=== PATIENT | female | born 1950 | race Caucasian/White ===

== ENCOUNTER 2020-02-07 16:36 | Emergency (ER) | payer MEDICARE, OTHER ==
--- NOTE | 2020-02-07 17:06 | PCM.SN.2 ---
- Free Text/Narrative Note: 12-Lead ECG Interpretation Acquired: 5:01 PM Rhythm: Sinus rhythm Rate: 89 bpm [place]: Normal Intervals: Normal Ectopy: None RV Strain: No obvious RV strain pattern. ST Segments/T-Waves: No notable changes Acute Ischemic Changes: None apparent Interpretation: No STEMI
[2020-02-07] MEDS ORDERED: Sodium Chloride 0.9% 2.5 ML Syringe FLUSH PRN (17:07)
[2020-02-07] MEDS ORDERED: Sodium Chloride 0.9% 10 ML Syringe FLUSH PRN (17:07)
[2020-02-07 17:37] LABS: BLOOD UREA NITROGEN,BUN 30 mg/dL (7.0-18.0); CARBON DIOXIDE,CO2 23.1 mmol/L (21.0-32.0); CHLORIDE,CL 94 mmol/L (98-107); GLUCOSE RANDOM 174 mg/dL (74-106); POTASSIUM,K 3.9 mmol/L (3.5-5.1); SODIUM,NA 132 mmol/L (136-145)
--- NOTE | 2020-02-07 17:52 | EDM.PDOC ---
<Giovanni Hernández - Last Filed: 02/07/20 19:46> ED HPI GENERAL MEDICAL PROBLEM - General Chief Complaint: Respiratory Problem Stated Complaint: SOB Time Seen by Provider: 02/07/20 16:42 Source of Information: Reports: Patient, Old Records History Limitations: Reports: No Limitations - History of Present Illness INITIAL COMMENTS - FREE TEXT/NARRATIVE: 69-year-old female with a past medical history of COPD and hypertension, diabetes mellitus, hypothyroidism, hyperlipidemia presenting with shortness of breath and infectious symptoms. She reports a 6-day history of a cough, fever at home, scant diarrhea, myalgias, and shortness of breath. The shortness of breath worsened today, which prompted her emergency department presentation. No known sick contacts. She was tested for COVID-19 2 days ago but has not had a result yet. Denies headache, neck pain, chest discomfort, hemoptysis, leg swelling, vomiting, hematemesis, bloody stools, dysuria, or hematuria. She does not use oxygen at home for her COPD. ROS: A 10-point review of systems was negative, except as noted in the HPI (or in the ROS section of this note). Past medical history: Reviewed, no additional pertinent history. Surgical history: Reviewed in system, no additional pertinent history. Social history: Reviewed in system, no additional pertinent history. Family history: Reviewed in system, no additional pertinent history. PHYSICAL EXAM Vital signs reviewed. Nursing notes reviewed. Constitutional: Awake, alert, non-distressed. Head: Normocephalic, atraumatic. Eyes: EOMI, conjunctiva normal, no discharge, no scleral icterus. Ears, Nose, Throat: External ears and nose normal, moist oral mucosa. Cardiovascular: 2+ radial pulse, capillary refill less than 2 seconds. No lower extremity edema. Pulmonary: Tachypneic, mildly increased work of breathing, no accessory muscle use. Abdomen/GI: Soft, nontender, nondistended, no guarding or rigidity, no masses. Musculoskeletal: No deformities. Integumentary: Appropriate color for ethnicity, warm, dry, no pallor or jaundice, no rash. Neurologic: Alert, answering questions appropriately, normal speech, no facial droop, moving all extremities well. Psychiatric: Appropriate mood and affect, normal thought process. This patient was seen and evaluated during the 2019 SARS-CoV-2 novel coronavirus pandemic period. Community viral transmission is ongoing at time of this encounter and the emergency department is operating under pandemic response procedures. Center back Pain Score (Numeric/FACES): 8 - Related Data Allergies Allergy/AdvReac Type Severity Reaction Status Date / Time nickel [Nickel] Allergy Rash Verified 02/07/20 16:50 catgut sutures Allergy Cannot Uncoded 02/07/20 16:50 Remember Home Meds: Home Meds Venlafaxine [Effexor] 150 mg PO DAILY 07/15/13 [History] atorvaSTATin Calcium [Atorvastatin Calcium] 10 mg PO DAILY 07/15/13 [History] metFORMIN HCl [Metformin HCl] 4,000 mg PO BID 07/15/13 [History] Budesonide/Formoterol [Symbicort 160-4.5 MCG] 1 puff INH BID 02/07/20 [History] Calcium Carbonate [Calcium] 600 mg PO DAILY 02/07/20 [History] Chlorthalidone 25 mg PO DAILY 02/07/20 [History] Diltiazem [Tiazac] 240 mg PO DAILY 02/07/20 [History] Levothyroxine 25 mcg PO DAILY 02/07/20 [History] Omeprazole 40 mg PO DAILY 02/07/20 [History] Past Medical History Cardiovascular History: Reports: High Cholesterol, Hypertension, ND, Stents Respiratory History: Reports: COPD Endocrine/Metabolic History: Reports: Diabetes, Type II - Infectious Disease History Infectious Disease History: Reports: Chicken Pox, Measles, Mumps - Past Surgical History Other Musculoskeletal Surgeries/Procedures:: R ankle, 7 R knee surgeries, 1 L knee surgery, Carpel tunnel repair bilat, spinal stenosis with repair Social & Family History - Family History Family Medical History: No Pertinent Family History - Tobacco Use Tobacco Use Status *Q: Never Tobacco User - Caffeine Use Caffeine Use: Reports: Coffee, Soda - Recreational Drug Use Recreational Drug Use: Yes Recreational Drug Type: Reports: Marijuana/Hashish Recreational Drug Use Frequency: Socially ED ROS GENERAL - Review of Systems Review Of Systems: See Below ED EXAM, GENERAL - Physical Exam Exam: See Below Course - Vital Signs Text/Narrative:: Differential diagnosis includes but is not limited to: COVID-19 pneumonia, bacterial pneumonia, sepsis, less likely acute coronary syndrome or congestive heart failure, less likely pulmonary embolism, COPD exacerbation, asthma exacerbation, and many others. 5:53 PM: Labs show normal cell lines. Mild hyponatremia 132. Creatinine mildly elevated at 1.2. Glucose 174 with normal carbon dioxide. AST mildly elevated at 59. Troponin negative. Waiting for BNP, COVID test, and chest x-ray. 6:26 PM: Chest x-ray is clear however the patient is persistently hypoxic. We are going to obtain a CT pulmonary angiogram to evaluate for pulmonary embolism or other occult pneumonia. Her COVID-19 test is positive. We are going to give p.o. dexamethasone. IV remdesivir not available as patient will need to be transferred to another hospital as we have no capacity here. The patient remained in the ED through the end of my shift. Refer to my colleague Dr. Claire's note for the disposition. Departure - Departure Disposition: DC/Tfer to Acute Hospital 02 Condition: Good Clinical Impression: Hypoxia, Acute respiratory failure due to COVID-19 - Discharge Information Referrals: Gee Skelton MD [Primary Care Provider] - Forms: ED Department Discharge Sepsis Event Note (ED) - Evaluation Sepsis Screening Result: No Definite Risk <Terry Claire - Last Filed: 02/07/20 19:55> Course - Vital Signs Last Recorded V/S: Last Vital Signs Temp 99.9 F 02/07/20 19:41 Pulse 84 02/07/20 19:41 Resp 20 02/07/20 19:41 BP 126/85 02/07/20 19:41 Pulse Ox 94 L 02/07/20 19:41 - Orders/Labs/Meds Orders: Active Orders 24 hr Category Date Time Status EKG Documentation Completion [RC] STAT Care 02/07/20 17:07 Active Pulse Oximetry [RC] ASDIRECTED Care 02/07/20 17:07 Active CORONAVIRUS COVID-19 PCR PHL Stat Lab 02/07/20 17:37 Received Sodium Chloride 0.9% [Saline Flush] Med 02/07/20 17:07 Active 10 ml FLUSH ASDIRECTED PRN Sodium Chloride 0.9% [Saline Flush] Med 02/07/20 17:07 Active 2.5 ml FLUSH ASDIRECTED PRN Saline Lock Insert [OM.PC] Stat Oth 02/07/20 17:07 Ordered Medication Orders Sodium Chloride (Saline Flush) 10 ml FLUSH ASDIRECTED PRN PRN Reason: Keep Vein Open Last Admin: 02/07/20 18:28 Dose: 10 ml Documented by: [id number] Sodium Chloride (Saline Flush) 2.5 ml FLUSH ASDIRECTED PRN PRN Reason: Keep Vein Open Last Admin: 02/07/20 18:28 Dose: 2.5 ml Documented by: [id number] Labs: Laboratory Tests 02/07/20 02/07/20 02/07/20 Range/Units 17:04 17:04 17:04 WBC 6.91 (4.0-11.0) K/uL RBC 5.01 (4.30-5.90) M/uL Hgb 15.0 (12.0-16.0) g/dL Hct 43.3 (36.0-46.0) % MCV 86.4 (80.0-98.0) fL MCH 29.9 (27.0-32.0) pg MCHC 34.6 (31.0-37.0) g/dL RDW Std Deviation 46.5 (28.0-62.0) fl RDW Coeff of Chicho 15 (11.0-15.0) % Plt Count 268 (150-400) K/uL MPV 10.40 (7.40-12.00) fL Neut % (Auto) 67.0 (48.0-80.0) % Lymph % (Auto) 19.8 (16.0-40.0) % [place] % (Auto) 13.0 (0.0-15.0) % Eos % (Auto) 0.1 (0.0-7.0) % Baso % (Auto) 0.1 (0.0-1.5) % Neut # (Auto) 4.6 (1.4-5.7) K/uL Lymph # (Auto) 1.4 (0.6-2.4) K/uL [place] # (Auto) 0.9 H (0.0-0.8) K/uL Eos # (Auto) 0.0 (0.0-0.7) K/uL Baso # (Auto) 0.0 (0.0-0.1) K/uL Nucleated RBC % 0.0 /100WBC Nucleated RBCs # 0 K/uL Sodium 132 L (136-145) mmol/L Potassium 3.9 (3.5-5.1) mmol/L Chloride 94 L (98-107) mmol/L Carbon Dioxide 23.1 (21.0-32.0) mmol/L BUN 30 H (7.0-18.0) mg/dL Creatinine 1.2 H (0.6-1.0) mg/dL Est Cr Clr Drug Dosing 32.68 mL/min Estimated GFR (MDRD) 44.8 ml/min Glucose 174 H (74-106) mg/dL Calcium 9.1 (8.5-10.1) mg/dL Total Bilirubin 0.5 (0.2-1.0) mg/dL AST 59 H (15-37) IU/L ALT 55 (14-63) IU/L Alkaline Phosphatase 91 (46-116) U/L Troponin I < 0.050 (0.000-0.056) ng/mL B-Natriuretic Peptide 9 (<100) PG/ML Total Protein 7.9 (6.4-8.2) g/dL Albumin 3.5 (3.4-5.0) g/dL Globulin 4.4 H (2.6-4.0) g/dL Albumin/Globulin Ratio 0.8 L (0.9-1.6) SARS CoV-2 RNA Rapid VIRAL (NEGATIVE) 02/07/20 Range/Units 17:37 WBC (4.0-11.0) K/uL RBC (4.30-5.90) M/uL Hgb (12.0-16.0) g/dL Hct (36.0-46.0) % MCV (80.0-98.0) fL MCH (27.0-32.0) pg MCHC (31.0-37.0) g/dL RDW Std Deviation (28.0-62.0) fl RDW Coeff of Chicho (11.0-15.0) % Plt Count (150-400) K/uL MPV (7.40-12.00) fL Neut % (Auto) (48.0-80.0) % Lymph % (Auto) (16.0-40.0) % [place] % (Auto) (0.0-15.0) % Eos % (Auto) (0.0-7.0) % Baso % (Auto) (0.0-1.5) % Neut # (Auto) (1.4-5.7) K/uL Lymph # (Auto) (0.6-2.4) K/uL [place] # (Auto) (0.0-0.8) K/uL Eos # (Auto) (0.0-0.7) K/uL Baso # (Auto) (0.0-0.1) K/uL Nucleated RBC % /100WBC Nucleated RBCs # K/uL Sodium (136-145) mmol/L Potassium (3.5-5.1) mmol/L Chloride (98-107) mmol/L Carbon Dioxide (21.0-32.0) mmol/L BUN (7.0-18.0) mg/dL Creatinine (0.6-1.0) mg/dL Est Cr Clr Drug Dosing mL/min Estimated GFR (MDRD) ml/min Glucose (74-106) mg/dL Calcium (8.5-10.1) mg/dL Total Bilirubin (0.2-1.0) mg/dL AST (15-37) IU/L ALT (14-63) IU/L Alkaline Phosphatase (46-116) U/L Troponin I (0.000-0.056) ng/mL B-Natriuretic Peptide (<100) PG/ML Total Protein (6.4-8.2) g/dL Albumin (3.4-5.0) g/dL Globulin (2.6-4.0) g/dL Albumin/Globulin Ratio (0.9-1.6) SARS CoV-2 RNA Rapid VIRAL POSITIVE H (NEGATIVE) Meds: Medications Generic Name Dose Route Start Last Admin Trade Name Freq PRN Reason Stop Dose Admin Sodium Chloride 10 ml 02/07/20 17:07 02/07/20 18:28 Saline Flush FLUSH 10 ml ASDIRECTED PRN Administration Keep Vein Open Sodium Chloride 2.5 ml 02/07/20 17:07 02/07/20 18:28 Saline Flush FLUSH 2.5 ml ASDIRECTED PRN Administration Keep Vein Open Discontinued Medications Generic Name Dose Route Start Last Admin Trade Name Freq PRN Reason Stop Dose Admin Acetaminophen 1,000 mg 02/07/20 18:18 02/07/20 18:28 Tylenol Extra Strength PO 02/07/20 18:19 1,000 mg ONETIME ONE Administration Dexamethasone 6 mg 02/07/20 18:25 02/07/20 19:34 Dexamethasone PO 02/07/20 18:26 6 mg ONETIME ONE Administration Remdesivir 200 mg/ Sodium 250 mls @ 250 mls/hr 02/07/20 18:26 02/07/20 18:56 Chloride IV 02/07/20 18:27 Not Given ONETIME ONE Ibuprofen 400 mg 02/07/20 18:18 02/07/20 18:28 Motrin PO 02/07/20 18:19 400 mg ONETIME ONE Administration Iopamidol 50 ml 02/07/20 19:01 02/07/20 19:02 Isovue Multipack-370 (76%) IVPUSH 02/07/20 19:02 50 ml ONETIME STA Administration Departure - Departure Time of Disposition: 19:54 Condition: Good Sepsis Event Note (ED) - Focused Exam Vital Signs: Vital Signs Temp Pulse Resp BP Pulse Ox 02/07/20 19:41 99.9 F 84 20 126/85 94 L 02/07/20 18:21 88 18 122/65 94 L 02/07/20 17:51 90 120/63 90 L 02/07/20 17:01 96.8 F L 92 16 145/68 H 93 L - Assessment/Plan Assessment:: Pt received in signout from Dr. Hernández at 1900. PT is a 69yoF with a h/o COPD presenting with acute hypoxic respiratory failure in the setting of COVID-19 infection. Pt's RA saturation was in the low 80s with unremarkable CXR. Given this CTPA is pending to assess for any PE. Labs are w/out evidence of right heart strain. Pt is now satting well on NC. Pt will need to be transferred as we do not have capacity for additional COVID19 admissions. 1930: CT pulmonary angiography demonstrates emphysematous changes and scattered groundglass opacities consistent with COVID-19. There is no PE. Patient relatively comfortable on 3 L nasal cannula at this time. She states that she takes Advair and frequent doses of prednisone for her COPD. She has a rescue inhaler but almost never needs it. She has been on prednisone more often recently in an attempt to control her chronic cough. She says that it worked for a few days and then stopped working again. Patient consents to transfer we will start the transfer process. On my assessment her WOB is good, she is breathing comfortably on 4 L NC with O2 sats 93-95. She is speaking in full complete sentences. 1934: [facility] at capacity. [facility] has only 3 COVID beds left and 5 COVID patients waiting in their ED so a bed is unlikely. Pt discussed with [facility]. The patient was accepted for transfer by Dr. Duenas. Patient has already been given decadron. Dr. Duenas and I agree that pt would be a candidate for Remdesivir. Unfortunately, because our local supply is so limited, hospital policy will not allow us to give Remdesivir to a patient that is being transferred. She will need to receive it at [facility]. Pt is felt stable for transfer at this time. We are awaiting bed assignment.
--- NOTE | 2020-02-07 18:05 | CR ---
Indication: Dyspnea Comparison: Two-view chest June 20, 2018 Technique: Single AP view chest Findings: There is hyperinflation and chronic interstitial change. There is no focal consolidation, effusion, or pneumothorax. The cardiomediastinal silhouette is within normal limits. The bony thorax is grossly intact. Impression: No acute cardiopulmonary abnormality. Dictated by Troy Richter MD @ Feb 07 2020 6:02PM Signed by Dr. Troy Richter @ Feb 07 2020 6:04PM
[2020-02-07] MEDS ORDERED: Acetaminophen 500 MG Tab PO ONE (18:18)
[2020-02-07] MEDS ORDERED: Ibuprofen 400 MG Tab PO ONE (18:18)
[2020-02-07] MEDS ORDERED: Dexamethasone 4 MG Tab PO ONE (18:25)
[2020-02-07] MEDS ORDERED: REMDESIVIR 200 MG in Sodium Chloride 0.9% 250 ML IV ONE (18:26)
[2020-02-07] MEDS ORDERED: Iopamidol 755 MG/ML 500 ML Multipack Bottle IVPUSH STA (19:01)
--- NOTE | 2020-02-07 19:22 | CT ---
Indication: Hypoxia Technique: Volumetric multidetector CT images of the chest were obtained after the administration of IV contrast. 50 cc Isovue 370 Comparison: Single view chest February 06, 2018 Findings: The thoracic inlet and thyroid gland are unremarkable. The thoracic aorta is nonaneurysmal. There is no central filling defect to suggest pulmonary embolism. There are reactive mediastinal and hilar lymph nodes. There is traction bronchiectasis and central bronchial thickening. There is moderate to severe emphysematous changes of the upper lobes predominantly with peripheral honeycombing likely representing a component of pulmonary fibrotic changes. There are likely superimposed ground-glass opacities which may represent developing multifocal infiltrate. There is no evidence of pulmonary mass or suspicious pulmonary nodule. The partially visualized upper abdominal viscera are within normal limits. The thoracic vertebral body heights are grossly maintained with minimal endplate Schmorl`s defects. There is no significant spondylolisthesis or displaced fracture. Impression: Extensive emphysematous changes and pulmonary fibrotic changes with likely minimal superimposed ground-glass opacity which may represent developing infiltrate. No evidence of pulmonary embolus. Please note that all CT scans at this facility use dose modulation, iterative reconstruction, and/or weight-based dosing when appropriate to reduce radiation dose to as low as reasonably achievable. Dictated by Troy Richter MD @ Feb 07 2020 7:03PM Signed by Dr. Troy Richter @ Feb 07 2020 7:21PM
[2020-02-07 20:24] VITALS: BP 102/53; PULSE 82
== END 2020-02-07 21:40 ==
LOC: MW.ED 16:36
DX: J96.01 Acute respiratory failure with hypoxia (principal); U07.1 COVID-19; J44.9 Chronic obstructive pulmonary disease, unspecified; I10 Essential (primary) hypertension; E11.9 Type 2 diabetes mellitus without complications; E03.9 Hypothyroidism, unspecified; E78.5 Hyperlipidemia, unspecified; E78.00 Pure hypercholesterolemia, unspecified; I25.2 Old myocardial infarction; Z88.8 Allergy status to other drugs, medicaments and biological substances; Z91.048 Other nonmedicinal substance allergy status; Z79.84 Long term (current) use of oral hypoglycemic drugs; Z79.899 Other long term (current) drug therapy
CPT/HCPCS: 36415; 71045; 71275; 80053; 83880; 84484; 85025; 93005; 99285; A9270; J8540; Q9967; U0002; 93010

== ENCOUNTER 2020-07-11 02:31 | Emergency (ER) | payer MEDICARE, OTHER ==
[2020-07-11] MEDS ORDERED: Diazepam 2 MG Tab PO ONE (03:31)
[2020-07-11] MEDS ORDERED: Ketorolac 30 MG/ML SDV IM ONE (03:31)
[2020-07-11] MEDS ORDERED: Ketorolac 30 MG/ML SDV ONE (03:32)
--- NOTE | 2020-07-11 03:40 | EDM.PDOC ---
ED HPI GENERAL MEDICAL PROBLEM - General Chief Complaint: Back Pain or Injury Stated Complaint: BACK SPASMS Time Seen by Provider: 07/11/20 03:09 - History of Present Illness INITIAL COMMENTS - FREE TEXT/NARRATIVE: ED HPI GENERAL MEDICAL PROBLEM - General Chief Complaint: Back Pain or Injury Stated Complaint: LEFT FOOT SHARP PAIN Time Seen by Provider: 07/11/20 03:10 - History of Present Illness INITIAL COMMENTS - FREE TEXT/NARRATIVE: History of present illness: [] Patient is 2 days of severe pain in left hip. It radiates down the left leg. It causes spasm. Changing the position over and over helps a little bit. The patient's had episodes in the past and they responded to anti-inflammatory medicine the muscle relaxers. The patient has no neurologic findings. She also says she has incontinence of urine but she has control of your sphincter to some degree but she just cannot make it to the bathroom in time and this is chronic and not new. The patient has no loss of control of her bowels. She has no sensory or motor loss below the waist. No dysuria or other urinary symptoms and no new urinary symptoms. There is been no history of injury and she has no history of malignancy. Review of systems: As per history of present illness and below otherwise all systems reviewed and negative. Past medical history: As per history of present illness and as reviewed below otherwise noncontributory. Surgical history: As per history of present illness and as reviewed below otherwise noncontributory. Social history: No reported history of drug or alcohol abuse. Family history: As per history of present illness and as reviewed below otherwise nonc ontributory. Physical exam: Constitutional - well developed, well-nourished and in no acute distress HEENT - normocephalic, no evidence of trauma - external nose and mouth normal - no mass in neck and no JVD - mucosae moist EYES - full EOM, PERRL, no icterus - no evidence of inflammation, injection, or drainage Respiratory - no respiratory distress, equal bilateral expansion, lungs clear to auscultation and no abnormal lung sounds Cardiovascular - Regular Rhythm with S1 and S2 appreciated and no murmur, gallop or rub. GI - abdomen soft without distension or organomegaly - normal bowel sounds - no guard or rebound Musculoskeletal straight leg raise on the right to 45 degrees causes a little bit of pain crossover to the left side of the hip. She is tender in the sciatic region and posterior thigh. Straight leg raise on the left is negative. No gross deformity of long bones or joints - no tenderness, swelling or edema Neurologic - Alert and oriented times four - CN II-XII grossly intact - motor sensory and coordination symmetrically normal Psychiatric - appropriate mood and affect with normal thought content Hematologic - No petechiae or purpura - mucosa appropriate color and sclera not pale - normal nail bed color and refill Integument - no rash or evidence of trauma - normal turgor Diagnostics: [] Therapeutics: [] Impression: [] Plan: [] Definitive disposition and diagnosis as appropriate pending reevaluation and review of above. Left Leg Pain Score (Numeric/FACES): 9 - Related Data Allergies Allergy/AdvReac Type Severity Reaction Status Date / Time No Known Allergies Allergy Verified 07/11/20 02:55 Home Meds: Home Meds diazePAM [Valium] 5 mg PO TID PRN #15 tab 07/11/20 [Rx] Past Medical History - Past Health History Medical/Surgical History: Denies Medical/Surgical History HEENT History: Reports: None Cardiovascular History: Reports: None Respiratory History: Reports: None Gastrointestinal History: Reports: None Genitourinary History: Reports: None PUBLIC SERVICE OFFICER History: Reports: None Musculoskeletal History: Reports: None Neurological History: Reports: None Psychiatric History: Reports: None Endocrine/Metabolic History: Reports: None Hematologic History: Reports: None Immunologic History: Reports: None Oncologic (Cancer) History: Reports: None Dermatologic History: Reports: None - Infectious Disease History Infectious Disease History: Reports: None - Past Surgical History Head Surgeries/Procedures: Reports: None HEENT Surgical History: Reports: Tonsillectomy GI Surgical History: Reports: None Social & Family History - Family History Family Medical History: No Pertinent Family History - Tobacco Use Tobacco Use Status *Q: Never Tobacco User - Caffeine Use Caffeine Use: Reports: None - Recreational Drug Use Recreational Drug Use: No ED ROS GENERAL - Review of Systems Review Of Systems: Comprehensive ROS is negative, except as noted in HPI. ED EXAM, GENERAL - Physical Exam Exam: See Below Free Text/Narrative:: My physical exam is in the HPI Course - Vital Signs Last Recorded V/S: Last Vital Signs Temp 36.1 C 07/11/20 02:55 Pulse 95 07/11/20 02:55 Resp 18 07/11/20 02:55 BP 128/49 L 07/11/20 02:55 Pulse Ox 97 07/11/20 02:55 - Orders/Labs/Meds Orders: Active Orders 24 hr Category Date Time Status Ketorolac [Toradol] Med 07/11/20 03:19 Once 30 mg IM ONETIME ONE diazePAM [Valium] Med 07/11/20 03:20 Once 5 mg PO ONETIME ONE Medication Orders Diazepam (Diazepam 2 Mg Tab) 5 mg PO ONETIME ONE Stop: 07/11/20 03:21 Ketorolac Tromethamine (Ketorolac 30 Mg/Ml Sdv) 30 mg IM ONETIME ONE Stop: 07/11/20 03:20 Meds: Medications Generic Name Dose Route Start Last Admin Trade Name Sarita PRN Reason Stop Dose Admin Diazepam 5 mg 07/11/20 03:20 Diazepam 2 Mg Tab PO 07/11/20 03:21 ONETIME ONE Ketorolac Tromethamine 30 mg 07/11/20 03:19 Ketorolac 30 Mg/Ml Sdv IM 07/11/20 03:20 ONETIME ONE Departure - Departure Time of Disposition: 03:45 Disposition: Home, Self-Care 01 Condition: Good Clinical Impression: Sciatica - Discharge Information Instructions: Sciatica, [id number] Referrals: Sylvia García NP [Primary Care Provider] - Additional Instructions: Take 500 mg naproxen or 600 mg ibuprofen as directed in the over the counter forearm along with a muscle relaxer. Be careful a muscle relaxer will also make you relaxed and may make you tired. [facility] [address] [place] [id number] [address] [id number] The following information is given to patients seen in the emergency department who are being discharged to home. This information is to outline your options for follow-up care. We provide all patients seen in our emergency department with a follow-up referral. The need for follow-up, as well as the timing and circumstances, are variable depending upon the specifics of your emergency department visit. If you don't have a primary care physician on staff, we will provide you with a referral. We always advise you to contact your personal physician following an emergency department visit to inform them of the circumstance of the visit and for follow-up with them and/or the need for any referrals to a consulting specialist. The emergency department will also refer you to a specialist when appropriate. This referral assures that you have the opportunity for follow-up care with a specialist. All of these measure are taken in an effort to provide you with optimal care, which includes your follow-up. Under all circumstances we always encourage you to contact your private physician who remains a resource for coordinating your care. When calling for follow-up care, please make the office aware that this follow-up is from your recent emergency room visit. If for any reason you are refused follow-up, please contact the [facility] Emergency Department at and asked to speak to the emergency department charge nurse. Sepsis Event Note (ED) - Evaluation Sepsis Screening Result: No Definite Risk - Focused Exam Vital Signs: Vital Signs Temp Pulse Resp BP Pulse Ox 07/11/20 02:55 36.1 C 95 18 128/49 L 97 - My Orders Last 24 Hours: My Active Orders 07/11/20 03:19 Ketorolac [Toradol] 30 mg IM ONETIME ONE 07/11/20 03:20 diazePAM [Valium] 5 mg PO ONETIME ONE - Assessment/Plan Last 24 Hours: My Active Orders 07/11/20 03:19 Ketorolac [Toradol] 30 mg IM ONETIME ONE 07/11/20 03:20 diazePAM [Valium] 5 mg PO ONETIME ONE lower back Pain Score (Numeric/FACES): 10 - Related Data Allergies Allergy/AdvReac Type Severity Reaction Status Date / Time nickel [Nickel] Allergy Rash Verified 07/11/20 02:55 catgut sutures Allergy Cannot Uncoded 07/11/20 02:55 Remember Home Meds: Home Meds Venlafaxine [Effexor] 150 mg PO DAILY 07/15/13 [History] atorvaSTATin Calcium [Atorvastatin Calcium] 10 mg PO DAILY 07/15/13 [History] metFORMIN HCl [Metformin HCl] 4,000 mg PO BID 07/15/13 [History] Budesonide/Formoterol [Symbicort 160-4.5 MCG] 1 puff INH BID 02/07/20 [History] Calcium Carbonate [Calcium] 600 mg PO DAILY 02/07/20 [History] Chlorthalidone 25 mg PO DAILY 02/07/20 [History] Diltiazem [Tiazac] 240 mg PO DAILY 02/07/20 [History] Levothyroxine 25 mcg PO DAILY 02/07/20 [History] Omeprazole 40 mg PO DAILY 02/07/20 [History] diazePAM [Valium] 5 mg PO TID PRN #15 tab 07/11/20 [Rx] Past Medical History HEENT History: Reports: None Cardiovascular History: Reports: High Cholesterol, Hypertension, [place], Stents Respiratory History: Reports: COPD Gastrointestinal History: Reports: None Genitourinary History: Reports: None PUBLIC SERVICE OFFICER History: Reports: None Musculoskeletal History: Reports: None Neurological History: Reports: None Psychiatric History: Reports: None Endocrine/Metabolic History: Reports: Diabetes, Type II 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 Consultant: None Hematologic History: Reports: None Immunologic History: Reports: None Oncologic (Cancer) History: Reports: None Dermatologic History: Reports: None - Infectious Disease History Infectious Disease History: Reports: Chicken Pox, Measles, Mumps - Past Surgical History Other Musculoskeletal Surgeries/Procedures:: R ankle, 7 R knee surgeries, 1 L knee surgery, Carpel tunnel repair bilat, spinal stenosis with repair Social & Family History - Family History Family Medical History: No Pertinent Family History - Caffeine Use Caffeine Use: Reports: Coffee, Soda - Recreational Drug Use Recreational Drug Use: No ED ROS GENERAL - Review of Systems Review Of Systems: Comprehensive ROS is negative, except as noted in HPI. ED EXAM, GENERAL - Physical Exam Exam: See Below Free Text/Narrative:: My physical exam is in the HPI Course - Vital Signs Text/Narrative:: ED HPI GENERAL MEDICAL PROBLEM - General Chief Complaint: Back Pain or Injury Stated Complaint: LEFT FOOT SHARP PAIN Time Seen by Provider: 07/11/20 03:10 - History of Present Illness INITIAL COMMENTS - FREE TEXT/NARRATIVE: History of present illness: [] Patient is 2 days of severe pain in left hip. It radiates down the left leg. It causes spasm. Changing the position over and over helps a little bit. The patient's had episodes in the past and they responded to anti-inflammatory medicine the muscle relaxers. The patient has no neurologic findings. She also says she has incontinence of urine but she has control of your sphincter to some degree but she just cannot make it to the bathroom in time and this is chronic and not new. The patient has no loss of control of her bowels. She has no sensory or motor loss below the waist. No dysuria or other urinary symptoms and no new urinary symptoms. There is been no history of injury and she has no history of malignancy. Review of systems: As per history of present illness and below otherwise all systems reviewed and negative. Past medical history: As per history of present illness and as reviewed below otherwise noncontributory. Surgical history: As per history of present illness and as reviewed below otherwise noncont ributory. Social history: No reported history of drug or alcohol abuse. Family history: As per history of present illness and as reviewed below otherwise noncontributory. Physical exam: Constitutional - well developed, well-nourished and in no acute distress HEENT - normocephalic, no evidence of trauma - external nose and mouth normal - no mass in neck and no JVD - mucosae moist EYES - full EOM, PERRL, no icterus - no evidence of inflammation, injection, or drainage Respiratory - no respiratory distress, equal bilateral expansion, lungs clear to auscultation and no abnormal lung sounds Cardiovascular - Regular Rhythm with S1 and S2 appreciated and no murmur, gallop or rub. GI - abdomen soft without distension or organomegaly - normal bowel sounds - no guard or rebound Musculoskeletal straight leg raise on the right to 45 degrees causes a little bit of pain crossover to the left side of the hip. She is tender in the sciatic region and posterior thigh. Straight leg raise on the left is negative. No gross deformity of long bones or joints - no tenderness, swelling or edema Neurologic - Alert and oriented times four - CN II-XII grossly intact - motor sensory and coordination symmetrically normal Psychiatric - appropriate mood and affect with normal thought content Hematologic - No petechiae or purpura - mucosa appropriate color and sclera not pale - normal nail bed color and refill Integument - no rash or evidence of trauma - normal turgor Diagnostics: [] Therapeutics: [] Impression: [] Plan: [] Definitive disposition and diagnosis as appropriate pending reevaluation and review of above. Left Leg Pain Score (Numeric/FACES): 9 - Related Data Allergies Allergy/AdvReac Type Severity Reaction Status Date / Time No Known Allergies Allergy Verified 07/11/20 02:55 Home Meds: Home Meds diazePAM [Valium] 5 mg PO TID PRN #15 tab 07/11/20 [Rx] Past Medical History - Past Health History Medical/Surgical History: Denies Medical/Surgical History HEENT History: Reports: None Cardiovascular History: Reports: None Respiratory History: Reports: None Gastrointestinal History: Reports: None Genitourinary History: Reports: None PUBLIC SERVICE OFFICER History: Reports: None Musculoskeletal History: Reports: None Neurological History: Reports: None Psychiatric History: Reports: None Endocrine/Metabolic History: Reports: None Hematologic History: Reports: None Immunologic History: Reports: None Oncologic (Cancer) History: Reports: None Dermatologic History: Reports: None - Infectious Disease History Infectious Disease History: Reports: None - Past Surgical History Head Surgeries/Procedures: Reports: None HEENT Surgical History: Reports: Tonsillectomy GI Surgical History: Reports: None Social & Family History - Family History Family Medical History: No Pertinent Family History - Tobacco Use Tobacco Use Status *Q: Never Tobacco User - Caffeine Use Caffeine Use: Reports: None - Recreational Drug Use Recreational Drug Use: No ED ROS GENERAL - Review of Systems Review Of Systems: Comprehensive ROS is negative, except as noted in HPI. ED EXAM, GENERAL - Physical Exam Exam: See Below Free Text/Narrative:: My physical exam is in the HPI Course - Vital Signs Last Recorded V/S: Last Vital Signs Temp 36.1 C 07/11/20 02:55 Pulse 95 07/11/20 02:55 Resp 18 07/11/20 02:55 BP 128/49 L 07/11/20 02:55 Pulse Ox 97 07/11/20 02:55 - Orders/Labs/Meds Orders: Active Orders 24 hr Category Date Time Status Ketorolac [Toradol] Med 07/11/20 03:19 Once 30 mg IM ONETIME ONE diazePAM [Valium] Med 07/11/20 03:20 Once 5 mg PO ONETIME ONE Medication Orders Diazepam (Diazepam 2 Mg Tab) 5 mg PO ONETIME ONE Stop: 07/11/20 03:21 Ketorolac Tromethamine (Ketorolac 30 Mg/Ml Sdv) 30 mg IM ONETIME ONE Stop: 07/11/20 03:20 Meds: Medications Generic Name Dose Route Start Last Admin Trade Name Sarita PRN Reason Stop Dose Admin Diazepam 5 mg 07/11/20 03:20 Diazepam 2 Mg Tab PO 07/11/20 03:21 ONETIME ONE Ketorolac Tromethamine 30 mg 07/11/20 03:19 Ketorolac 30 Mg/Ml Sdv IM 07/11/20 03:20 ONETIME ONE Departure - Departure Time of Disposition: 03:45 Disposition: Home, Self-Care 01 Condition: Good Clinical Impression: Sciatica - Discharge Information Instructions: Sciatica, [id number] Referrals: Sylvia García NP [Primary Care Provider] - Additional Instructions: Take 500 mg naproxen or 600 mg ibuprofen as directed in the over the counter forearm along with a muscle relaxer. Be careful a muscle relaxer will also make you relaxed and may make you tired. [facility] [address] [place] [address] [place] [address] The following information is given to patients seen in the emergency department who are being discharged to home. This information is to outline your options for follow-up care. We provide all patients seen in our emergency department with a follow-up referral. The need for follow-up, as well as the timing and circumstances, are variable depending upon the specifics of your emergency department visit. If you don't have a primary care physician on staff, we will provide you with a referral. We always advise you to contact your personal physician following an emergency department visit to inform them of the circumstance of the visit and for follow-up with them and/or the need for any referrals to a consulting ecialist. The emergency department will also refer you to a specialist when appropriate. This referral assures that you have the opportunity for follow-up care with a specialist. All of these measure are taken in an effort to provide you with optimal care, which includes your follow-up. Under all circumstances we always encourage you to contact your private physician who remains a resource for coordinating your care. When calling for follow-up care, please make the office aware that this follow-up is from your recent emergency room visit. If for any reason you are refused follow-up, please contact the [facility] Emergency Department at and asked to speak to the emergency department charge nurse. Sepsis Event Note (ED) - Evaluation Sepsis Screening Result: No Definite Risk - Focused Exam Vital Signs: Vital Signs Temp Pulse Resp BP Pulse Ox 07/11/20 02:55 36.1 C 95 18 128/49 L 97 - My Orders Last 24 Hours: My Active Orders 07/11/20 03:19 Ketorolac [Toradol] 30 mg IM ONETIME ONE 07/11/20 03:20 diazePAM [Valium] 5 mg PO ONETIME ONE - Assessment/Plan Last 24 Hours: My Active Orders 07/11/20 03:19 Ketorolac [Toradol] 30 mg IM ONETIME ONE 07/11/20 03:20 diazePAM [Valium] 5 mg PO ONETIME ONE Last Recorded V/S: Last Vital Signs Temp 36.6 C 07/11/20 02:55 Pulse 100 07/11/20 02:55 Resp 18 07/11/20 02:55 BP 125/98 H 07/11/20 02:55 Pulse Ox 97 07/11/20 02:55 - Orders/Labs/Meds Meds: Medications Discontinued Medications Generic Name Dose Route Start Last Admin Trade Name Sarita PRN Reason Stop Dose Admin Diazepam 5 mg 07/11/20 03:31 Diazepam 2 Mg Tab PO 07/11/20 03:32 ONETIME ONE Ketorolac Tromethamine 30 mg 07/11/20 03:31 Ketorolac 30 Mg/Ml Sdv IM 07/11/20 03:32 ONETIME ONE Ketorolac Tromethamine Confirm 07/11/20 03:32 Ketorolac 30 Mg/Ml Sdv Administered 07/11/20 03:33 Dose 30 mg .ROUTE .STK-MED ONE Departure - Departure Time of Disposition: 03:36 Disposition: Home, Self-Care 01 Condition: Good Clinical Impression: Sciatica - Discharge Information Instructions: Sciatica Referrals: Gee Skelton MD [Primary Care Provider] - Additional Instructions: Use [id number] anti-inflammatory medicines and the muscle relaxers. Be careful the Valium may cause sedation. [facility] - Primary [facility] [address] [place] [address] [facility] [address] [place] [id number] The following information is given to patients seen in the emergency department who are being discharged to home. This information is to outline your options for follow-up care. We provide all patients seen in our emergency department with a follow-up referral. The need for follow-up, as well as the timing and circumstances, are variable depending upon the specifics of your emergency department visit. If you don't have a primary care physician on staff, we will provide you with a referral. We always advise you to contact your personal physician following an emergency department visit to inform them of the circumstance of the visit and for follow-up with them and/or the need for any referrals to a consulting specialist. The emergency department will also refer you to a specialist when appropriate. This referral assures that you have the opportunity for follow-up care with a specialist. All of these measure are taken in an effort to provide you with optimal care, which includes your follow-up. Under all circumstances we always encourage you to contact your private physician who remains a resource for coordinating your care. When calling for follow-up care, please make the office aware that this follow-up is from your recent emergency room visit. If for any reason you are refused follow-up, please contact the [facility] Emergency Department at and asked to speak to the emergency department charge nurse. Sepsis Event Note (ED) - Evaluation Sepsis Screening Result: No Definite Risk - Focused Exam Vital Signs: Vital Signs Temp Pulse Resp BP Pulse Ox 07/11/20 02:55 36.6 C 100 18 125/98 H 97
[2020-07-11 04:00] VITALS: BP 130/66; PULSE 92
== END 2020-07-11 03:58 | disposition home or self-care (01) ==
LOC: MW.ED 02:31
DX: M54.32 Sciatica, left side (principal)
CPT/HCPCS: 96372; 99283; A9270; J1885

== ENCOUNTER 2020-07-14 13:05 | Emergency (ER) | payer MEDICARE, OTHER ==
[2020-07-14 13:22] VITALS: BP 136/76; PULSE 92
[2020-07-14] MEDS ORDERED: Ketorolac 60 MG/2 ML SDV IM ONE (14:23)
[2020-07-14] MEDS ORDERED: oxyCODONE 5 MG Tab PO ONE (14:24)
--- NOTE | 2020-07-14 16:10 | CT ---
INDICATION: Low back pain. TECHNIQUE: CT lumbar spine without contrast. COMPARISON: None FINDINGS/IMPRESSION: Vertebrae: Alignment is normal. There are no fractures or suspicious bony lesions. Discs and facet joints: Moderate degenerative disc spondylosis at T12-L1. Remainder of the disc spaces are unremarkable. Moderate facet joint spondylosis at L4-5 and L5-S1. no other findings to explain pain. Extraspinal findings: Prevertebral soft tissues and visualized retroperitoneum are unremarkable. Chest Please note that all CT scans at this facility use dose modulation, iterative reconstruction, and/or weight-based dosing when appropriate to reduce radiation dose to as low as reasonably achievable. Dictated by Deondre Ho MD @ 07/14/2020 4:10:[address] Deondre Ho @ Jul 14 2020 4:10PM
--- NOTE | 2020-07-14 16:14 | EDM.PDOC ---
ED HPI GENERAL MEDICAL PROBLEM - General Chief Complaint: Back Pain or Injury Stated Complaint: back spasms Time Seen by Provider: 07/14/20 13:07 Source of Information: Reports: Patient History Limitations: Reports: No Limitations - History of Present Illness INITIAL COMMENTS - FREE TEXT/NARRATIVE: HISTORY AND PHYSICAL: History of present illness: Patient is a 69-year-old female who presents to the ED today with concern of low back pain that radiates down the right leg that has been ongoing x4 days. Patient states that she was seen in the ED when I had initially started and was given Valium and Toradol. Patient states that these initially helped quite a bit but states that despite this, she has had continued low back pain. Patient denies any trauma or injury to her low back. Patient denies any loss or retention of bowel bladder function or saddle anesthesia. Patient has a history of COPD, hypertension, hyperlipidemia, and type 2 diabetes. Patient states that she has been able to walk but does have pain with doing so. Patient denies fever, chills, chest pain, shortness of breath, or cough. Denies headache, neck stiff ness, change in vision, syncope, or near syncope. Denies nausea, vomiting, abdominal pain, diarrhea, constipation, or dysuria. Has not noted any blood in urine or stool. Patient has been eating and drinking appropriately. Review of systems: As per history of present illness and below otherwise all systems reviewed and negative. Past medical history: As per history of present illness and as reviewed below otherwise noncontributory. Surgical history: As per history of present illness and as reviewed below otherwise noncontributory. Social history: See social history for further information Family history: As per history of present illness and as reviewed below otherwise noncontributory. Physical exam: General: Patient is alert, oriented, and in no acute distress. Patient sitting comfortably on exam table. Triage O2 listed 91%, however on my exam 96% otherwise, vitally stable and reviewed by me. HEENT: Atraumatic, normocephalic, pupils equal and reactive bilaterally, negative for conjunctival pallor or scleral icterus, mucous membranes moist, TMs normal bilaterally, throat clear, neck supple, nontender, trachea midline. No drooling or trismus noted. No meningeal signs. No hot potato voice noted. Lungs: Clear to auscultation, breath sounds equal bilaterally, chest nontender. Heart: S1S2, regular rate and rhythm without overt murmur Abdomen: Soft, nondistended, nontender. Negative for masses or hepatosplenome олег. Negative for costovertebral tenderness. Pelvis: Stable nontender. Genitourinary: Deferred. Rectal: Deferred. Skin: Intact, warm, dry. No lesions or rashes noted. Extremities: No obvious deformity of the complete spine. No step-offs, crepitus to palpation of the complete spine. Patient does have pain of her lower lumbar spinous and right sided paraspinous muscle to palpation. SLR intact bilaterally. Heel/Toe gait intact. Patellar reflexes intact bilaterally. Patient was able to ambulate on exam. Patient does have full range of motion of her thoracic and cervical spine but limited range of motion of the lumbar spine due to pain. Otherwise, atraumatic, negative for cords or calf pain. Neurovascular unremarkable. Neuro: Awake, alert, oriented. Cranial nerves II through XII unremarkable. Cerebellum unremarkable. Motor and sensory unremarkable throughout. Exam nonfocal. Notes: On initial exam, patient is alert, oriented, and vitally stable. Patient does have moderate to severe pain of her lower lumbar spine and pain with range of motion of her lumbar spine. Patient has negative CVA tenderness on exam and no focal deficits noted. However, due to severity of pain, will obtain lumbar CT and urinalysis. Lumbar CT shows alignment is normal. There is no fractures or suspicious bone lesions. Daughter at degenerative disc spondylosis at T12-L1. Remainder of the disc spaces are unremarkable. Moderate facet joint spondylosis at L4-5 and L5- S1. No other findings to explain pain. Prevertebral soft tissues and visualized retroperitoneum are unremarkable. Urinalysis shows positive leukocyte Estrace with 2+ bacteria and 22-26 WBC. Patient states she does not have any burning with urination and CVA tenderness is negative on exam. However, will treat for urinary tract infection and culture urine. Upon reevaluation of patient, she remains vitally stable and more comfortable following therapeutics. Patient still has pain with range of motion of her lumbar spine but states that this is more tolerable given therapeutics today in the ED. Strict return precautions thoroughly discussed with patient. Discussed importance for follow-up with a primary care provider. Voices understanding and is agreeable to plan of care. Denies any further questions or concerns at this time. Diagnostics: Lumbar CT, UA w culture Therapeutics: Toradol, Oxycodone Prescription: Keflex, Diclofenac, Tramadol Impression: Low back pain Urinary tract infection Plan: 1. The medication you received today does cause drowsiness, so do not drive for the remaining day. 2. When resting please lay on a flat firm surface. Limit your mobility to prevent muscle stiffness. Get up to ambulate/move around/gentle stretching multiple times throughout the day. May alternate heat and ice to painful areas. 3. Tylenol as needed for back pain. Otherwise, take the prescribed tramadol and diclofenac as directed. Diclofenac as an anti-inflammatory medication so do not take any additional NSAIDs with this medication, such as naproxen, ibuprofen, or Aleve. Tramadol, this medication may cause drowsiness, so do not take it while driving or needing to be functioning outside of the home. 4. Follow-up with your primary care provider as discussed. Return to the ED as needed and as discussed. Definitive disposition and diagnosis as appropriate pending reevaluation and review of above. back Pain Score (Numeric/FACES): 10 - Related Data Allergies Allergy/AdvReac Type Severity Reaction Status Date / Time nickel [Nickel] Allergy Rash Verified 07/14/20 13:18 catgut sutures Allergy Cannot Uncoded 07/14/20 13:18 Remember Home Meds: Home Meds Venlafaxine [Effexor] 150 mg PO DAILY 07/15/13 [History] atorvaSTATin Calcium [Atorvastatin Calcium] 10 mg PO DAILY 07/15/13 [History] metFORMIN HCl [Metformin HCl] 4,000 mg PO BID 07/15/13 [History] Budesonide/Formoterol [Symbicort 160-4.5 MCG] 1 puff INH BID 02/07/20 [History] Calcium Carbonate [Calcium] 600 mg PO DAILY 02/07/20 [History] Chlorthalidone 25 mg PO DAILY 02/07/20 [History] Diltiazem [Tiazac] 240 mg PO DAILY 02/07/20 [History] Levothyroxine 25 mcg PO DAILY 02/07/20 [History] Omeprazole 40 mg PO DAILY 02/07/20 [History] diazePAM [Valium] 5 mg PO TID PRN #15 tab 07/11/20 [Rx] Diclofenac Sodium [Voltaren] 75 mg PO BIDMEALS PRN #15 tab.cr 07/14/20 [Rx] Lidocaine 5% [Lidoderm 5%] 1 patch TOP DAILY PRN #4 patch 07/14/20 [Rx] cephALEXin [Keflex] 500 mg PO Q8H 7 Days #21 cap 07/14/20 [Rx] traMADol [Ultram] 50 mg PO Q6H PRN #10 tab 07/14/20 [Rx] Past Medical History HEENT History: Reports: None Cardiovascular History: Reports: High Cholesterol, Hypertension, NE, Stents Respiratory History: Reports: COPD Gastrointestinal History: Reports: None Genitourinary History: Reports: None W[employer]OW IN[employer]ATION [employer]OR History: Reports: None Musculoskeletal History: Reports: None Neurological History: Reports: None Psychiatric History: Reports: None Endocrine/Metabolic History: Reports: Diabetes, Type II Insulin Pump Model and Hot Car Operator: None Hematologic History: Reports: None Immunologic History: Reports: None Oncologic (Cancer) History: Reports: None Dermatologic History: Reports: None - Infectious Disease History Infectious Disease History: Reports: Chicken Pox, Measles, Mumps, Novel Coron avirus Other Infectious Disease History: covid 01/2020 - Past Surgical History Other Musculoskeletal Surgeries/Procedures:: R ankle, 7 R knee surgeries, 1 L knee surgery, Carpel tunnel repair bilat, spinal stenosis with repair Social & Family History - Family History Family Medical History: No Pertinent Family History - Caffeine Use Caffeine Use: Reports: Coffee, Soda ED ROS GENERAL - Review of Systems Review Of Systems: Comprehensive ROS is negative, except as noted in HPI. ED EXAM, GENERAL - Physical Exam Exam: See Below (see dictation) Course - Vital Signs Last Recorded V/S: Last Vital Signs Temp 97.0 F 07/14/20 13:19 Pulse 92 07/14/20 13:19 Resp 18 07/14/20 13:19 BP 136/76 07/14/20 13:19 Pulse Ox 91 L 07/14/20 13:19 - Orders/Labs/Meds Orders: Active Orders 24 hr Category Date Time Status CULTURE URINE [RM] Stat Lab 07/14/20 16:16 Received Labs: Laboratory Tests 07/14/20 Range/Units 16:16 Urine Color YELLOW Urine Appearance SLT CLOUDY Urine pH 6.0 (5.0-8.0) Ur Specific [place] 1.020 (1.001-1.035) Urine Protein NEGATIVE (NEGATIVE) mg/dL Urine Glucose (UA) NEGATIVE (NEGATIVE) mg/dL Urine Ketones NEGATIVE (NEGATIVE) mg/dL Urine Occult Blood NEGATIVE (NEGATIVE) Urine Nitrite NEGATIVE (NEGATIVE) Urine Bilirubin NEGATIVE (NEGATIVE) Urine Urobilinogen 1.0 (<2.0) EU/dL Ur Leukocyte Esterase SMALL H (NEGATIVE) Urine RBC 0-2 (0-2/HPF) Urine WBC 22-26 (0-5/HPF) Ur Epithelial Cells RARE (NONE-FEW) Amorphous Sediment FEW (NEGATIVE) Urine Bacteria 2+ H (NEGATIVE) Urine Mucus FEW (NONE-MOD) Meds: Medications Discontinued Medications Generic Name Dose Route Start Last Admin Trade Name Freq PRN Reason Stop Dose Admin Ketorolac Tromethamine 60 mg 07/14/20 14:23 07/14/20 15:24 Ketorolac 60 Mg/2 Ml Sdv IM 07/14/20 14:24 60 mg ONETIME ONE Administration Oxycodone HCl 5 mg 07/14/20 14:24 07/14/20 15:25 Oxycodone 5 Mg Tab PO 07/14/20 14:25 5 mg ONETIME ONE Administration Departure - Departure Time of Disposition: 16:14 Disposition: Home, Self-Care 01 Clinical Impression: Low back pain Qualifiers: Chronicity: acute Back pain laterality: bilateral Sciatica presence: with sciatica Sciatica laterality: sciatica of right side Qualified Code(s): M54.41 - Lumbago with sciatica, right side Urinary tract infection Qualifiers: Urinary tract infection type: acute cystitis Hematuria presence: without hematuria Qualified Code(s): N30.00 - Acute cystitis without hematuria - Discharge Information Prescriptions: Lidocaine 5% [Lidoderm 5%] 1 patch TOP DAILY PRN #4 patch PRN Reason: Pain (Mild 1-3) traMADol [Ultram] 50 mg PO Q6H PRN #10 tab PRN Reason: Pain (Severe 7-10) Diclofenac Sodium [Voltaren] 75 mg PO BIDMEALS PRN #15 tab.cr PRN Reason: Pain Instructions: Chronic Back Pain, [id number] Referrals: Gee Skelton MD [Primary Care Provider] - Forms: ED Department Discharge Additional Instructions: The following information is given to patients seen in the emergency department who are being discharged to home. This information is to outline your options for follow-up care. We provide all patients seen in our emergency department with a follow-up referral. The need for follow-up, as well as the timing and circumstances, are variable depending upon the specifics of your emergency department visit. If you don't have a primary care physician on staff, we will provide you with a referral. We always advise you to contact your personal physician following an emergency department visit to inform them of the circumstance of the visit and for follow-up with them and/or the need for any referrals to a consulting specialist. The emergency department will also refer you to a specialist when appropriate. This referral assures that you have the opportunity for follow-up care with a specialist. All of these measure are taken in an effort to provide you with optimal care, which includes your follow-up. Under all circumstances we always encourage you to contact your private physician who remains a resource for coordinating your care. When calling for follow-up care, please make the office aware that this follow-up is from your recent emergency room visit. If for any reason you are refused follow-up, please contact the [facility] Emergency Department at and asked to speak to the emergency department charge nurse. [facility] [address] [place] [address] [id number] 1. The medication you received today does cause drowsiness, so do not drive for the remaining day. 2. When resting please lay on a flat firm surface. Limit your mobility to prevent muscle stiffness. Get up to ambulate/move around/gentle stretching multiple times throughout the day. May alternate heat and ice to painful areas. 3. Tylenol as needed for back pain. Otherwise, take the prescribed tramadol and diclofenac as directed. Diclofenac as an anti-inflammatory medication so do not take any additional NSAIDs with this medication, such as naproxen, ibuprofen, or Aleve. Tramadol, this medication may cause drowsiness, so do not take it while driving or needing to be functioning outside of the home. 4. Follow-up with your primary care provider as discussed. Return to the ED as needed and as discussed. Sepsis Event Note (ED) - Evaluation Sepsis Screening Result: No Definite Risk - Focused Exam Vital Signs: Vital Signs Temp Pulse Resp BP Pulse Ox 07/14/20 13:19 97.0 F 92 18 136/76 91 L - My Orders Last 24 Hours: My Active Orders 07/14/20 16:16 CULTURE URINE [RM] Stat - Assessment/Plan Last 24 Hours: My Active Orders 07/14/20 16:16 CULTURE URINE [RM] Stat
== END 2020-07-14 16:47 | disposition home or self-care (01) ==
LOC: MW.ED 13:05
DX: M54.41 Lumbago with sciatica, right side (principal); M54.42 Lumbago with sciatica, left side; N39.0 Urinary tract infection, site not specified; E78.00 Pure hypercholesterolemia, unspecified; I10 Essential (primary) hypertension; I25.2 Old myocardial infarction; J44.9 Chronic obstructive pulmonary disease, unspecified; E11.9 Type 2 diabetes mellitus without complications; Z91.048 Other nonmedicinal substance allergy status; Z95.5 Presence of coronary angioplasty implant and graft; Z79.84 Long term (current) use of oral hypoglycemic drugs; Z79.899 Other long term (current) drug therapy
CPT/HCPCS: 72131; 81001; 87086; 87088; 87186; 96372; 99284; A9270; J1885; 99283

== ENCOUNTER 2021-09-23 11:48 | Emergency (ER) | payer MEDICARE, OTHER ==
[2021-09-23] MEDS ORDERED: Acetaminophen/Codeine 120-12 MG/5 ML Soln 5 ML UD Cup PO ONE (12:03)
[2021-09-23 13:08] VITALS: PULSE 77
[2021-09-23] MEDS ORDERED: Albuterol 8 GM Inhaler INH ONE (13:52)
[2021-09-23 14:13] VITALS: BP 123/50
== END 2021-09-23 14:11 | disposition home or self-care (01) ==
LOC: MW.ED 11:48
DX: J40 Bronchitis, not specified as acute or chronic (principal); I10 Essential (primary) hypertension; E78.00 Pure hypercholesterolemia, unspecified; I25.2 Old myocardial infarction; E11.9 Type 2 diabetes mellitus without complications; Z20.822 Contact with and (suspected) exposure to COVID-19; Z88.8 Allergy status to other drugs, medicaments and biological substances; Z79.899 Other long term (current) drug therapy
CPT/HCPCS: 36415; 71045; 80053; 83880; 84484; 85025; 93005; 99285; A9270; U0002; 99284

== ENCOUNTER 2022-03-02 21:55 | Inpatient (IN) | payer MEDICARE, OTHER ==
[2022-03-03] MEDS ORDERED: Albuterol/Ipratropium 3.0-0.5 MG/3 ML Neb Soln NEB ONE (00:19)
[2022-03-03 01:02] LABS: CORONAVIRUS COVID-19 NAA NEGATIVE (NEGATIVE); INFLUENZA A NAA NEGATIVE (NEGATIVE); INFLUENZA B NAA NEGATIVE (NEGATIVE); RESPIRATORY SYNCYTIAL VIR NAA NEGATIVE (NEGATIVE)
[2022-03-03] MEDS ORDERED: Ondansetron 4 MG/2 ML SDV IVPUSH ONE (01:16)
[2022-03-03] MEDS ORDERED: Lactated Ringers 1,000 ML IV STA ×2 (01:16→02:25)
[2022-03-03] MEDS ORDERED: Ketorolac 30 MG/ML SDV IVPUSH ONE (01:17)
[2022-03-03 02:12] LABS: CARBON DIOXIDE,CO2 20.3 mmol/L (21.0-32.0)
[2022-03-03] MEDS ORDERED: Potassium Chloride 10% 20 MEQ/15 ML Soln 30 ML UD Cup PO ONE (02:29)
[2022-03-03] MEDS ORDERED: Magnesium Sulfate/Water 2 GM in Premix Bag 1 BAG IV ONE ×2 (02:29→07:30)
[2022-03-03] MEDS ORDERED: Morphine 2 MG/ML SYRINGE IVPUSH ONE (02:49)
[2022-03-03 03:13] LABS: CARBON DIOXIDE,CO2 23.3 mmol/L (21.0-32.0); POTASSIUM,K 3.1 mmol/L (3.5-5.1)
[2022-03-03] MEDS ORDERED: Polyethylene Glycol 3350 Powder 17 GM Packet PO PRN (07:04)
[2022-03-03] MEDS ORDERED: Albuterol/Ipratropium 3.0-0.5 MG/3 ML Neb Soln NEB PRN (07:07)
[2022-03-03] MEDS ORDERED: Potassium Chloride 100 ML IV SCH (07:30)
[2022-03-03] MEDS ORDERED: Glucagon,Human Recombinant 1 MG Vial IM PRN (07:30)
[2022-03-03] MEDS ORDERED: 50% Dextrose in Water 50 ML Syringe IVPUSH PRN (07:30)
[2022-03-03] MEDS ORDERED: Lactated Ringers 1,000 ML IV ONE (08:04)
[2022-03-03] MEDS: Levothyroxine 75 MCG Tab PO SCH (08:05)
[2022-03-03] MEDS: Insulin Aspart 100 Units/ML 3 ML Pen SUBCUT SCH ×3 (08:14→16:46)
[2022-03-03] MEDS: Acetaminophen 325 MG Tab PO PRN ×2 (08:30→17:58)
[2022-03-03] MEDS ORDERED: atorvaSTATin 10 MG Tab PO SCH (09:00)
[2022-03-03] MEDS ORDERED: Omeprazole 20 MG Cap.CR PO SCH (09:00)
[2022-03-03 09:09] LABS: CARBON DIOXIDE,CO2 19.2 mmol/L (21.0-32.0); POTASSIUM,K 3.2 mmol/L (3.5-5.1)
[2022-03-03] MEDS ORDERED: Potassium Chloride 20 MEQ Tab.ER PO ONE (09:17)
[2022-03-03] MEDS: Enoxaparin 40 MG/0.4 ML Syringe SUBCUT SCH (09:30)
[2022-03-03] MEDS: Chlorthalidone 25 MG Tab PO SCH (09:31)
[2022-03-03] MEDS: Venlafaxine 75 MG Cap.ER PO SCH (09:31)
[2022-03-03] MEDS: Ciprofloxacin in D5W 400 MG in Premix Bag 1 BAG IV SCH ×2 (13:24)
[2022-03-03] MEDS: metroNIDAZOLE/Normal Saline 500 MG in Premix Bag 1 BAG IV SCH ×2 (13:24→18:03)
[2022-03-03] MEDS: Lactated Ringers 1,000 ML IV SCH (16:48)
[2022-03-03] MEDS: Omeprazole 20 MG Cap.CR PO SCH (20:32)
[2022-03-03] MEDS: atorvaSTATin 10 MG Tab PO SCH (20:32)
[2022-03-04] MEDS: metroNIDAZOLE/Normal Saline 500 MG in Premix Bag 1 BAG IV SCH ×4 (00:33→18:09)
[2022-03-04] MEDS: Ciprofloxacin in D5W 400 MG in Premix Bag 1 BAG IV SCH ×4 (01:51→14:06)
[2022-03-04] MEDS: Lactated Ringers 1,000 ML IV SCH (05:38)
[2022-03-04] MEDS: Insulin Aspart 100 Units/ML 3 ML Pen SUBCUT SCH ×3 (06:44→17:46)
[2022-03-04] MEDS: Acetaminophen 325 MG Tab PO PRN (06:44)
[2022-03-04] MEDS: Levothyroxine 75 MCG Tab PO SCH (06:44)
[2022-03-04 07:59] LABS: CARBON DIOXIDE,CO2 22.1 mmol/L (21.0-32.0); POTASSIUM,K 2.6 mmol/L (3.5-5.1)
[2022-03-04] MEDS ORDERED: Potassium Chloride 20 MEQ Tab.ER PO ONE ×2 (08:15→18:06)
[2022-03-04] MEDS ORDERED: Potassium Chloride 100 ML IV SCH (08:15)
[2022-03-04] MEDS: Enoxaparin 40 MG/0.4 ML Syringe SUBCUT SCH (09:03)
[2022-03-04] MEDS: Venlafaxine 75 MG Cap.ER PO SCH (09:04)
[2022-03-04] MEDS: Chlorthalidone 25 MG Tab PO SCH (09:04)
[2022-03-04] MEDS ORDERED: Magnesium Sulfate/Water 2 GM in Premix Bag 1 BAG IV ONE (09:45)
[2022-03-04] MEDS ORDERED: NS with KCl 40mEq 1,000 ML IV ONE ×2 (09:45→18:15)
[2022-03-04] MEDS: Ondansetron 4 MG/2 ML SDV IVPUSH PRN (10:07)
[2022-03-04] MEDS: Nystatin Topical Powder 15 GM Bottle TOP SCH ×4 (10:08→22:45)
[2022-03-04] MEDS: Morphine 2 MG/ML SYRINGE IVPUSH PRN ×2 (10:08→14:15)
[2022-03-04 16:23] LABS: CARBON DIOXIDE,CO2 24.2 mmol/L (21.0-32.0); POTASSIUM,K 2.8 mmol/L (3.5-5.1)
[2022-03-04] MEDS: Omeprazole 20 MG Cap.CR PO SCH (20:40)
[2022-03-04] MEDS: atorvaSTATin 10 MG Tab PO SCH (20:40)
[2022-03-05] MEDS: metroNIDAZOLE/Normal Saline 500 MG in Premix Bag 1 BAG IV SCH ×4 (00:02→18:18)
[2022-03-05] MEDS: Ciprofloxacin in D5W 400 MG in Premix Bag 1 BAG IV SCH ×4 (01:21→14:28)
[2022-03-05] MEDS: Lactated Ringers 1,000 ML IV SCH ×2 (02:21→17:23)
[2022-03-05] MEDS: Nystatin Topical Powder 15 GM Bottle TOP SCH ×3 (05:52→22:57)
[2022-03-05 06:20] LABS: POTASSIUM,K 2.7 mmol/L (3.5-5.1)
[2022-03-05] MEDS: Levothyroxine 75 MCG Tab PO SCH (06:37)
[2022-03-05] MEDS ORDERED: Magnesium Sulfate/Water 2 GM in Premix Bag 1 BAG IV ONE (07:08)
[2022-03-05] MEDS ORDERED: Potassium Chloride 20 MEQ Tab.ER PO ONE ×2 (07:45→17:00)
[2022-03-05] MEDS: Insulin Aspart 100 Units/ML 3 ML Pen SUBCUT SCH ×3 (07:56→17:04)
[2022-03-05] MEDS ORDERED: LACTATED RINGERS IV ONE (08:00)
[2022-03-05] MEDS ORDERED: POTASSIUM CHLORIDE IV ONE (08:00)
[2022-03-05] MEDS ORDERED: MAGNESIUM SULFATE IV ONE (08:00)
[2022-03-05] MEDS: Enoxaparin 40 MG/0.4 ML Syringe SUBCUT SCH (08:04)
[2022-03-05] MEDS: Ondansetron 4 MG/2 ML SDV IVPUSH PRN ×2 (08:04→18:19)
[2022-03-05] MEDS: Morphine 2 MG/ML SYRINGE IVPUSH PRN ×2 (08:05→18:18)
[2022-03-05] MEDS: Venlafaxine 75 MG Cap.ER PO SCH (09:26)
[2022-03-05] MEDS: Chlorthalidone 25 MG Tab PO SCH (09:56)
[2022-03-05 14:53] LABS: CARBON DIOXIDE,CO2 25.3 mmol/L (21.0-32.0); POTASSIUM,K 3.1 mmol/L (3.5-5.1)
[2022-03-05] MEDS: atorvaSTATin 10 MG Tab PO SCH (20:14)
[2022-03-05] MEDS: Omeprazole 20 MG Cap.CR PO SCH (20:14)
[2022-03-06] MEDS: metroNIDAZOLE/Normal Saline 500 MG in Premix Bag 1 BAG IV SCH ×4 (00:37→19:33)
[2022-03-06] MEDS: Ciprofloxacin in D5W 400 MG in Premix Bag 1 BAG IV SCH ×4 (01:44→14:46)
[2022-03-06] MEDS: Lactated Ringers 1,000 ML IV SCH (04:37)
[2022-03-06] MEDS: Nystatin Topical Powder 15 GM Bottle TOP SCH ×3 (06:12→21:36)
[2022-03-06] MEDS: Levothyroxine 75 MCG Tab PO SCH ×2 (06:16→07:05)
[2022-03-06 06:40] LABS: CARBON DIOXIDE,CO2 26.6 mmol/L (21.0-32.0); POTASSIUM,K 2.8 mmol/L (3.5-5.1)
[2022-03-06] MEDS: Insulin Aspart 100 Units/ML 3 ML Pen SUBCUT SCH ×3 (07:05→18:30)
[2022-03-06] MEDS ORDERED: Magnesium Sulfate/Water 2 GM in Premix Bag 1 BAG IV ONE (08:00)
[2022-03-06] MEDS ORDERED: Potassium Chloride 20 MEQ Tab.ER PO ONE ×2 (08:00→16:56)
[2022-03-06] MEDS: Venlafaxine 75 MG Cap.ER PO SCH (09:01)
[2022-03-06] MEDS: Enoxaparin 40 MG/0.4 ML Syringe SUBCUT SCH (09:05)
[2022-03-06] MEDS ORDERED: NS with KCl 40mEq 1,000 ML IV ONE (12:06)
[2022-03-06] MEDS: Azithromycin 250 MG Tab PO SCH (13:24)
[2022-03-06 15:07] LABS: CARBON DIOXIDE,CO2 25.9 mmol/L (21.0-32.0); POTASSIUM,K 3.2 mmol/L (3.5-5.1)
[2022-03-06] MEDS: Omeprazole 20 MG Cap.CR PO SCH (21:35)
[2022-03-06] MEDS: atorvaSTATin 10 MG Tab PO SCH (21:35)
[2022-03-07] MEDS: Lactated Ringers 1,000 ML IV SCH ×2 (00:03→14:29)
[2022-03-07] MEDS: metroNIDAZOLE/Normal Saline 500 MG in Premix Bag 1 BAG IV SCH ×4 (00:47→18:52)
[2022-03-07] MEDS: Ciprofloxacin in D5W 400 MG in Premix Bag 1 BAG IV SCH ×4 (02:03→15:04)
[2022-03-07] MEDS: Nystatin Topical Powder 15 GM Bottle TOP SCH ×3 (05:47→21:09)
[2022-03-07] MEDS: Levothyroxine 75 MCG Tab PO SCH (06:44)
[2022-03-07] MEDS: Insulin Aspart 100 Units/ML 3 ML Pen SUBCUT SCH ×3 (07:30→16:46)
[2022-03-07] MEDS: Venlafaxine 75 MG Cap.ER PO SCH (08:59)
[2022-03-07] MEDS: Enoxaparin 40 MG/0.4 ML Syringe SUBCUT SCH (08:59)
[2022-03-07 09:11] LABS: CARBON DIOXIDE,CO2 26.3 mmol/L (21.0-32.0); POTASSIUM,K 3.3 mmol/L (3.5-5.1)
[2022-03-07] MEDS ORDERED: Potassium Chloride 20 MEQ Tab.ER PO ONE (10:15)
[2022-03-07] MEDS: Azithromycin 250 MG Tab PO SCH (12:13)
[2022-03-07] MEDS: atorvaSTATin 10 MG Tab PO SCH (21:08)
[2022-03-07] MEDS: Omeprazole 20 MG Cap.CR PO SCH (21:08)
[2022-03-08] MEDS: metroNIDAZOLE/Normal Saline 500 MG in Premix Bag 1 BAG IV SCH ×3 (01:00→12:30)
[2022-03-08] MEDS: Ciprofloxacin in D5W 400 MG in Premix Bag 1 BAG IV SCH ×2 (02:25)
[2022-03-08] MEDS: Levothyroxine 75 MCG Tab PO SCH (06:53)
[2022-03-08] MEDS: Nystatin Topical Powder 15 GM Bottle TOP SCH ×3 (06:55→21:16)
[2022-03-08 07:01] LABS: CARBON DIOXIDE,CO2 27.7 mmol/L (21.0-32.0); POTASSIUM,K 2.8 mmol/L (3.5-5.1)
[2022-03-08] MEDS: Insulin Aspart 100 Units/ML 3 ML Pen SUBCUT SCH ×3 (07:57→17:33)
[2022-03-08] MEDS: Enoxaparin 40 MG/0.4 ML Syringe SUBCUT SCH (09:43)
[2022-03-08] MEDS: Venlafaxine 75 MG Cap.ER PO SCH (09:43)
[2022-03-08] MEDS ORDERED: Magnesium Sulfate/Water 2 GM in Premix Bag 1 BAG IV ONE (09:46)
[2022-03-08] MEDS ORDERED: NS with KCl 40mEq 1,000 ML IV ONE (10:00)
[2022-03-08] MEDS ORDERED: Potassium Chloride 20 MEQ Tab.ER PO ONE (10:00)
[2022-03-08] MEDS: Morphine 2 MG/ML SYRINGE IVPUSH PRN (10:20)
[2022-03-08] MEDS ORDERED: Loperamide 2 MG Cap PO ONE (10:33)
[2022-03-08] MEDS: Azithromycin 250 MG Tab PO SCH (12:26)
[2022-03-08] MEDS: Acetaminophen 325 MG Tab PO PRN ×2 (12:28→17:42)
[2022-03-08] MEDS: Piperacillin/Tazobactam 3.375 GM in Sodium Chloride 0.9% 50 ML IV SCH ×2 (14:17→18:46)
[2022-03-08] MEDS: Vancomycin 125 MG Cap PO SCH ×2 (15:16→17:42)
[2022-03-08] MEDS: atorvaSTATin 10 MG Tab PO SCH (21:10)
[2022-03-08] MEDS: Omeprazole 20 MG Cap.CR PO SCH (21:10)
[2022-03-08] MEDS: Lactated Ringers 1,000 ML IV SCH (21:10)
[2022-03-09] MEDS: Vancomycin 125 MG Cap PO SCH ×4 (00:35→18:16)
[2022-03-09] MEDS: Piperacillin/Tazobactam 3.375 GM in Sodium Chloride 0.9% 50 ML IV SCH ×4 (00:35→18:31)
[2022-03-09] MEDS: Morphine 2 MG/ML SYRINGE IVPUSH PRN ×3 (00:38→21:29)
[2022-03-09] MEDS: Nystatin Topical Powder 15 GM Bottle TOP SCH ×3 (06:07→21:29)
[2022-03-09] MEDS: Lactated Ringers 1,000 ML IV SCH ×3 (06:07→15:41)
[2022-03-09] MEDS: Levothyroxine 75 MCG Tab PO SCH (06:54)
[2022-03-09 07:10] LABS: CARBON DIOXIDE,CO2 25.9 mmol/L (21.0-32.0); POTASSIUM,K 3.3 mmol/L (3.5-5.1)
[2022-03-09] MEDS ORDERED: Magnesium Sulfate/Water 2 GM in Premix Bag 1 BAG IV ONE (07:19)
[2022-03-09] MEDS: Insulin Aspart 100 Units/ML 3 ML Pen SUBCUT SCH ×3 (08:05→16:42)
[2022-03-09] MEDS: Enoxaparin 40 MG/0.4 ML Syringe SUBCUT SCH (08:18)
[2022-03-09] MEDS: Venlafaxine 75 MG Cap.ER PO SCH (08:19)
[2022-03-09] MEDS: Potassium Chloride 20 MEQ Tab.ER PO SCH (08:19)
[2022-03-09] MEDS ORDERED: Loperamide 2 MG Cap PO ONE (10:00)
[2022-03-09] MEDS: Acetaminophen 325 MG Tab PO PRN ×2 (12:06→16:56)
[2022-03-09] MEDS: Azithromycin 250 MG Tab PO SCH (12:06)
[2022-03-09] MEDS: Omeprazole 20 MG Cap.CR PO SCH (21:29)
[2022-03-09] MEDS: atorvaSTATin 10 MG Tab PO SCH (21:29)
[2022-03-10] MEDS: Lactated Ringers 1,000 ML IV SCH (00:05)
[2022-03-10] MEDS: Vancomycin 125 MG Cap PO SCH ×3 (00:05→12:54)
[2022-03-10] MEDS: Piperacillin/Tazobactam 3.375 GM in Sodium Chloride 0.9% 50 ML IV SCH ×3 (01:09→12:54)
[2022-03-10] MEDS: Nystatin Topical Powder 15 GM Bottle TOP SCH ×2 (07:07→14:11)
[2022-03-10] MEDS: Levothyroxine 75 MCG Tab PO SCH (07:08)
[2022-03-10] MEDS: Insulin Aspart 100 Units/ML 3 ML Pen SUBCUT SCH ×2 (07:50→11:41)
[2022-03-10 08:02] LABS: POTASSIUM,K 3.4 mmol/L (3.5-5.1)
[2022-03-10] MEDS: Enoxaparin 40 MG/0.4 ML Syringe SUBCUT SCH (08:29)
[2022-03-10] MEDS: Potassium Chloride 20 MEQ Tab.ER PO SCH (08:29)
[2022-03-10] MEDS: Venlafaxine 75 MG Cap.ER PO SCH (08:29)
[2022-03-10] MEDS ORDERED: Magnesium Oxide 400 MG Tab PO ONE (11:51)
[2022-03-10] MEDS ORDERED: Potassium Chloride 20 MEQ Tab.ER PO ONE (11:52)
[2022-03-10 12:05] VITALS: BP 158/70; PULSE 81
[2022-03-10] MEDS: Morphine 2 MG/ML SYRINGE IVPUSH PRN (12:55)
== END 2022-03-10 15:30 | disposition home or self-care (01) | DRG 392 ==
LOC: MW.ED 21:55 → MW.MS 03-03 03:39 → OBSVTOIN 03-03 09:36 → MW.MS 03-04 11:35
PROVIDERS: ADMIT Internal Medicine; ATTEND Internal Medicine
DX: K57.32 Diverticulitis of large intestine without perforation or abscess without bleeding (principal); R19.7 Diarrhea, unspecified; N30.00 Acute cystitis without hematuria; E86.0 Dehydration; I10 Essential (primary) hypertension; E03.9 Hypothyroidism, unspecified; I25.10 Atherosclerotic heart disease of native coronary artery without angina pectoris; J44.9 Chronic obstructive pulmonary disease, unspecified; Z20.822 Contact with and (suspected) exposure to COVID-19; E87.6 Hypokalemia; E11.9 Type 2 diabetes mellitus without complications; E78.00 Pure hypercholesterolemia, unspecified; F32.A Depression, unspecified; Z87.891 Personal history of nicotine dependence; Z86.16 Personal history of COVID-19; Z79.899 Other long term (current) drug therapy; Z79.890 Hormone replacement therapy; Z91.09 Other allergy status, other than to drugs and biological substances; I25.2 Old myocardial infarction; Z95.5 Presence of coronary angioplasty implant and graft; Z79.84 Long term (current) use of oral hypoglycemic drugs; Z86.19 Personal history of other infectious and parasitic diseases
CPT/HCPCS: 0241U; 36415; 74176; 80048; 80053; 81001; 82947; 83605; 83735; 84100; 85025; 87040; 87045; 87046; 87086; 87324; 87328; 87329; 87449; 87899; 93005; 96361; 96365; 96366; 96375; 99285-25; A9270-GY; J0744; J1650; J1815-GY; J1885; J2270; J2405; J2543; J3475; J3480; J3490; J7120; J7620-GY

== ENCOUNTER 2022-11-12 09:17 | Day surgery (SDC) | payer MEDICARE, OTHER ==
[~2022-11-12 09:17] MED LIST: Dexmedetomidine 200 MCG/2 ML SDV ONE; Lactated Ringers 1,000 ML IV SCH; Sodium Chloride 0.9% 10 ML Syringe FLUSH PRN; Sodium Chloride 0.9% 2.5 ML Syringe FLUSH PRN; Sodium Chloride 0.9% 20 ML SDV IV PRN; Water For Injection, Sterile 20 ML ONE; propofoL 50 ML ONE
[2022-11-12 12:54] VITALS: BP 120/59; PULSE 69
== END 2022-11-12 11:49 | disposition home or self-care (01) ==
LOC: MW.SDS 09:17
PROVIDERS: ATTEND Surgery
DX: K57.30 Diverticulosis of large intestine without perforation or abscess without bleeding (principal); K52.9 Noninfective gastroenteritis and colitis, unspecified; F41.9 Anxiety disorder, unspecified; F32.A Depression, unspecified; J45.909 Unspecified asthma, uncomplicated; I25.10 Atherosclerotic heart disease of native coronary artery without angina pectoris; R09.89 Other specified symptoms and signs involving the circulatory and respiratory systems; J44.9 Chronic obstructive pulmonary disease, unspecified; K57.90 Diverticulosis of intestine, part unspecified, without perforation or abscess without bleeding; K21.9 Gastro-esophageal reflux disease without esophagitis; M10.9 Gout, unspecified; I10 Essential (primary) hypertension; E78.00 Pure hypercholesterolemia, unspecified; M19.079 Primary osteoarthritis, unspecified ankle and foot; I25.2 Old myocardial infarction; E66.9 Obesity, unspecified; E03.9 Hypothyroidism, unspecified; R20.2 Paresthesia of skin; E11.9 Type 2 diabetes mellitus without complications; Z91.041 Radiographic dye allergy status; Z88.8 Allergy status to other drugs, medicaments and biological substances; Z79.82 Long term (current) use of aspirin; Z79.899 Other long term (current) drug therapy; Z79.890 Hormone replacement therapy; Z79.84 Long term (current) use of oral hypoglycemic drugs; Z98.51 Tubal ligation status; Z87.19 Personal history of other diseases of the digestive system; Z86.010 Personal history of colon polyps; Z98.890 Other specified postprocedural states; Z87.891 Personal history of nicotine dependence
CPT/HCPCS: 45380; 82947; 88305; J2704; J7120; 00811; J3490

== ENCOUNTER 2024-03-06 06:32 | Emergency (ER) | payer MEDICARE, OTHER ==
[2024-03-06 06:47] VITALS: PULSE 81
[2024-03-06] MEDS: Ketorolac 30 MG/ML SDV IM ONE (07:16)
[2024-03-06 09:32] VITALS: BP 157/59
== END 2024-03-06 09:32 | disposition home or self-care (01) ==
LOC: MW.ED 06:32
DX: M62.838 Other muscle spasm (principal); G89.29 Other chronic pain; I10 Essential (primary) hypertension; I25.2 Old myocardial infarction; K21.9 Gastro-esophageal reflux disease without esophagitis; M19.90 Unspecified osteoarthritis, unspecified site; E78.00 Pure hypercholesterolemia, unspecified; E66.9 Obesity, unspecified; E11.9 Type 2 diabetes mellitus without complications; E03.9 Hypothyroidism, unspecified; Z91.041 Radiographic dye allergy status; Z91.048 Other nonmedicinal substance allergy status; Z88.8 Allergy status to other drugs, medicaments and biological substances; Z79.82 Long term (current) use of aspirin; Z79.84 Long term (current) use of oral hypoglycemic drugs; Z79.890 Hormone replacement therapy; Z79.899 Other long term (current) drug therapy; Z87.891 Personal history of nicotine dependence; Z68.41 Body mass index [BMI] 40.0-44.9, adult
CPT/HCPCS: 73562; 93971; 96372; 99284; J1885; 99283